=== PATIENT | female | born 1950 | race Caucasian/White ===

== ENCOUNTER 2016-12-30 07:36 | Observation (INO) | payer MEDICARE, OTHER ==
[~2016-12-30] VITALS: Ht 165.1 cm; Wt 62.1 kg
[~2016-12-30 07:36] MED LIST: ALPR0.25; ALPR0.25 PO; AMIT100T PO; AMIT50TA; AMIT50TA PO; ASPI-496 PO; ASPI-614; ATOR-2 PO; BACITRACIN 50,000 UNIT ONE; BUPIVACAINE/PF 0.5% ONE; CELE200C; CELE200C PO; CHLO1CAP PO; CHLO4TAB22; CHLO4TAB22 PO; CITRACAL PLUS PO; DOCU240C53 PO; EPINEPHRINE 1 MG/ML, 1ML ONE; ESCI20TA10 PO; ESOM40CA; ESOM40SU PO; ESTR0.3T; ESTR0.3T PO; FURO20TA3 PO; GABA300C10 PO; HYDR-3240 PO; IBAN150T; IBAN150T PO; KRIL1CAP9 PO; LEVO100T PO; LEVO125T; LEVO125T PO; MAGN400T26; MAGN400T26 PO; METF10002 PO; METF500T27 PO; METF500T9; MINO100C; MULT-717; MULT-717 PO; OMEP20TA62 PO; OXYC1TAB7 PO; POLY17PO5; PROP80CA12; PROP80CA12 PO; ROSU40TA; ROSU40TA PO; THROMBIN 5,000 UNIT VIAL TP ONE; TRAM1TAB56; TRAM1TAB56 PO; potassium gluconate PO
[2016-12-30] MEDS ORDERED: LACTATED RINGERS 1,000 ML IV SCH (08:17)
[2016-12-30 08:56] VITALS: BP 119/74
[2016-12-30] MEDS ORDERED: OXYcodone 5 MG/5 ML ORAL.SOL UDC PO PRN (11:30)
[2016-12-30] MEDS ORDERED: LABETALOL 5MG/ML, 20ML IV PRN (11:30)
[2016-12-30] MEDS ORDERED: PROMETHAZINE 25 MG/ML, 1ML IV PRN (11:30)
[2016-12-30] MEDS ORDERED: HYDROcodone/APAP 7.5-325MG/15ML UDC PO PRN (11:30)
[2016-12-30] MEDS ORDERED: hydrALAzine 20 MG/ML, 1ML IV PRN (11:30)
[2016-12-30] MEDS ORDERED: ACETAMINOPHEN 325 MG TABLET PO PRN (11:30)
[2016-12-30] MEDS ORDERED: ONDANSETRON 2MG/ML, 2ML IVPush PRN ×2 (11:30→13:30)
[2016-12-30] MEDS ORDERED: EPHEDRINE 50 MG/ML, 1ML IVPush PRN (11:30)
[2016-12-30] MEDS ORDERED: FENTANYL PF 100 MCG/2ML IV PRN (11:30)
[2016-12-30] MEDS ORDERED: MEPERIDINE/PF 25MG/0.5ML IVPush PRN (11:30)
[2016-12-30] MEDS ORDERED: HYDROmorphone 1 MG/ML, 1ML IV PRN (11:30)
[2016-12-30] MEDS ORDERED: MIDAZOLAM 1 MG/ML, 2ML IV PRN (11:30)
[2016-12-30] MEDS ORDERED: FENTANYL PF 100 MCG/2ML ONE ×3 (11:33→13:45)
[2016-12-30] MEDS ORDERED: MIDAZOLAM 1 MG/ML, 2ML ONE (11:33)
[2016-12-30] MEDS ORDERED: ONDANSETRON 2MG/ML, 2ML ONE (12:32)
[2016-12-30] MEDS ORDERED: PROPOFOL 10 MG/ML, 20ML ONE (12:32)
[2016-12-30] MEDS ORDERED: CEFAZOLIN 1,000 MG ONE (12:32)
[2016-12-30] MEDS ORDERED: DIPHENHYDRAMINE 50 MG/ML, 1ML IVPush PRN (13:30)
[2016-12-30] MEDS ORDERED: NS + 20MEQ KCL 1,000 ML IV SCH (13:30)
[2016-12-30] MEDS ORDERED: PHARMACY MAY ADJ FOR RENAL FX MC PRN (13:30)
[2016-12-30] MEDS ORDERED: OXYcodone/APAP 5/325MG TABLET PO PRN ×2 (13:30)
[2016-12-30] MEDS ORDERED: CEFAZOLIN PMX 1GM/50ML 50 ML IVPB SCH (13:30)
[2016-12-30] MEDS ORDERED: PROMETHAZINE 25 MG/ML, 1ML IM PRN (13:30)
[2016-12-30] MEDS ORDERED: ACETAMINOPHEN 650 MG/20.3 ML UDC ONE (13:45)
[2016-12-30] MEDS ORDERED: ACETAMINOPHEN 325 MG TABLET ONE (13:45)
[2016-12-30] MEDS ORDERED: OXYcodone 5 MG/5 ML ORAL.SOL UDC ONE (13:46)
[2016-12-30] MEDS ORDERED: GABAPENTIN 300 MG CAPSULE PO SCH (16:00)
[2016-12-30] MEDS ORDERED: CHLORDIAZEPOXIDE PO SCH (21:00)
[2016-12-30] MEDS ORDERED: PROPRANOLOl 80 MG CAP.SA.24H PO SCH (21:00)
[2016-12-30] MEDS ORDERED: CHLORPHENIRAMINE MALEATE 4 MG PO SCH (21:00)
[2016-12-30] MEDS ORDERED: TEMPLATE NON-FORMULARY MED. (Metformin HCl 1,000 MG) PO SCH (21:00)
[2016-12-30] MEDS ORDERED: [UNRECOGNIZED DRUG - OTHER] PO SCH (21:00)
[2016-12-30] MEDS ORDERED: OMEPRAZOLE MAGNESIUM 40 MG PO SCH (21:00)
[2016-12-30] MEDS ORDERED: AMITRIPTYLINE 100 MG TABLET PO SCH (21:00)
[2016-12-30] MEDS ORDERED: ATORVASTATIN 80 MG TABLET PO SCH (21:00)
[2016-12-30] MEDS ORDERED: SODIUM CHLORIDE FLUSH 10ML SYR IVF SCH (21:00)
[2016-12-31] MEDS ORDERED: LEVOTHYROXINE 100 MCG TABLET PO SCH (06:00)
[2016-12-31] MEDS ORDERED: CITRACAL PLUS PO SCH (09:00)
[2016-12-31] MEDS ORDERED: DOCUSATE CALCIUM 240 MG CAPSULE PO SCH (09:00)
[2016-12-31] MEDS ORDERED: MAGNESIUM OXIDE 400 MG TABLET PO SCH (09:00)
[2016-12-31] MEDS ORDERED: ESTROGEN CONJUGATED 0.3 MG TABLET PO SCH (09:00)
[2016-12-31] MEDS ORDERED: TEMPLATE NON-FORMULARY MED. (Escitalopram Oxalate** (Lexapro**) 20 MG) PO SCH (09:00)
[2016-12-31] MEDS ORDERED: POTASSIUM GLUCONATE 99 MG PO SCH (09:00)
[2017-01-01] MEDS ORDERED: FUROSEMIDE 20 MG TABLET PO SCH (09:00)
[2017-01-02] MEDS ORDERED: DIPHENHYDRAMINE 50 MG/ML, 1ML IVPush PRN (14:30)
[2017-01-02] MEDS ORDERED: ONDANSETRON 2MG/ML, 2ML IVPush PRN ×2 (14:30)
[2017-01-02] MEDS ORDERED: PROMETHAZINE 25 MG/ML, 1ML IM PRN (14:30)
[2017-01-02] MEDS ORDERED: hydrALAzine 20 MG/ML, 1ML IV PRN (14:30)
[2017-01-02] MEDS ORDERED: LACTATED RINGERS 1,000 ML IV SCH (14:30)
[2017-01-02] MEDS ORDERED: LABETALOL 5MG/ML, 20ML IV PRN (14:30)
[2017-01-02] MEDS ORDERED: PROMETHAZINE 25 MG/ML, 1ML IV PRN (14:30)
[2017-01-02] MEDS ORDERED: ACETAMINOPHEN 325 MG TABLET PO PRN (14:30)
== END 2016-12-30 15:45 | disposition home or self-care (01) ==
LOC: OUT 07:36 → ORIP 13:29
PROVIDERS: ADMIT Neurological Surgery; ATTEND Neurological Surgery
DX: Z45.49 Encounter for adjustment and management of other implanted nervous system device (principal); G89.4 Chronic pain syndrome; E11.9 Type 2 diabetes mellitus without complications; I10 Essential (primary) hypertension; F41.9 Anxiety disorder, unspecified; K21.9 Gastro-esophageal reflux disease without esophagitis; F32.9 Major depressive disorder, single episode, unspecified; M54.81 Occipital neuralgia; G43.909 Migraine, unspecified, not intractable, without status migrainosus
CPT/HCPCS: 63685; 82962; C1767; C1787; C1883; G0378; J0171; J0690; J2250; J2405; J2704; J3010; J3490; J7120

== ENCOUNTER 2018-08-30 09:01 | Day surgery (SDC) | payer MEDICARE, OTHER ==
[~2018-08-30] VITALS: Ht 165.1 cm; Wt 75.0 kg
[~2018-08-30 09:01] MED LIST changes: +BUPIVACAINE/EPI 0.5% 1:200K ONE; -BUPIVACAINE/PF 0.5% ONE; -EPINEPHRINE 1 MG/ML, 1ML ONE; -IBAN150T; -IBAN150T PO; +IBAN150T15; +IBAN150T15 PO; -METF10002 PO; +METF10007 PO; +MICROFIBRILLAR COLLAGEN 70X35X1 DRESSING ONE; +VANCOMYCIN 1,000 MG ONE
[2018-08-30] MEDS ORDERED: ACETAMINOPHEN 500 MG TABLET PO ONE (09:32)
[2018-08-30] MEDS ORDERED: DIAZEPAM 5 MG TABLET PO ONE (09:32)
[2018-08-30] MEDS ORDERED: GABAPENTIN 300 MG CAPSULE PO ONE (09:32)
[2018-08-30] MEDS ORDERED: LACTATED RINGERS 1,000 ML IV SCH (09:33)
[2018-08-30 09:41] VITALS: BP 147/82
[2018-08-30] MEDS ORDERED: [UNRECOGNIZED DRUG - CODE] PO (09:52)
[2018-08-30] MEDS ORDERED: HYOS0.1268 PO (09:52)
[2018-08-30] MEDS ORDERED: SIME125T50 PO (09:52)
[2018-08-30] MEDS ORDERED: DOCU100C33 PO (09:52)
[2018-08-30] MEDS ORDERED: AMIT50TA PO (09:52)
[2018-08-30] MEDS ORDERED: CALC-123 PO (09:52)
[2018-08-30] MEDS ORDERED: LIDOCAINE-MPF 1%, 2ML INFIL ONE (10:00)
[2018-08-30] MEDS ORDERED: FENTANYL PF 250 MCG/5ML ONE (10:18)
[2018-08-30] MEDS ORDERED: MIDAZOLAM 1 MG/ML, 2ML ONE (10:18)
[2018-08-30 10:21] LABS: MEAN CORPUSCULAR HEMOGLOBIN 23.9 pg (27.0-34.8); MEAN CORPUSCULAR HGB CONC 31.4 g/dL (32.4-35.8); MEAN PLATELET VOLUME 6.8 fL (7.4-10.4); PLATELET COUNT 476 x10^3/uL (130-400); RED BLOOD COUNT 4.69 x10^6/uL (3.82-5.3); RED CELL DISTRIBUTION WIDTH 24.2 % (9.6-15.2)
[2018-08-30 10:35] LABS: BASOPHILS # (AUTO) 0.07 x10^3/uL (0-0.1); BASOPHILS % (AUTO) 1 % (0-1); EOSINOPHILS # (AUTO) 0.37 x10^3/uL (0-0.4); EOSINOPHILS % (AUTO) 6 % (1-7); LYMPHOCYTES # (AUTO) 2.24 x10^3/uL (1-3.4); LYMPHOCYTES % (AUTO) 36 % (22-44); MD MORPH REVIEW ONLY; MONOCYTES % (AUTO) 11 % (2-9); NEUTROPHILS # (AUTO) 2.94 x10^3/uL (1.8-6.8); NEUTROPHILS % (AUTO) 47 % (42-75)
[2018-08-30 10:38] LABS: ACANTHOCYTES 1+; ANISOCYTOSIS 2+; HYPOCHROMIA 1+; MICROCYTOSIS 1+
[2018-08-30 10:40] LABS: <PLATELET ESTIMATE> INCREASED; OVALOCYTES 1+
[2018-08-30 10:41] LABS: POLYCHROMASIA 1+; SMALL PLATELETS 1+
[2018-08-30] MEDS ORDERED: ROCURONIUM 10 MG/ML,10ML ONE (10:48)
[2018-08-30] MEDS ORDERED: SUCCINYLCHOLINE 20 MG/ML, 10ML ONE (10:48)
[2018-08-30] MEDS ORDERED: CEFAZOLIN 1,000 MG ONE (11:12)
[2018-08-30] MEDS ORDERED: PROPOFOL 10 MG/ML, 20ML ONE (11:12)
[2018-08-30] MEDS ORDERED: DEXAMETHASONE 4 MG/ML, 1ML ONE (11:12)
[2018-08-30] MEDS ORDERED: ONDANSETRON 2MG/ML, 2ML ONE (11:12)
[2018-08-30] MEDS ORDERED: OXYcodone 5 MG/5 ML ORAL.SOL UDC PO PRN (11:30)
[2018-08-30] MEDS ORDERED: FENTANYL PF 100 MCG/2ML IV PRN (11:30)
[2018-08-30] MEDS ORDERED: ALBUTEROL/IPRATROPIUM 2.5MG/0.5MG, 3 ML NPPB PRN (11:30)
[2018-08-30] MEDS ORDERED: MEPERIDINE/PF 25MG/0.5ML IVPush PRN (11:30)
[2018-08-30] MEDS ORDERED: METOPROLOL 1 MG/ML, 5ML IV PRN (11:30)
[2018-08-30] MEDS ORDERED: ONDANSETRON 2MG/ML, 2ML IV PRN (11:30)
[2018-08-30] MEDS ORDERED: OXYcodone 5 MG/5 ML ORAL.SOL UDC ONE (12:04)
== END 2018-08-30 14:10 | disposition home or self-care (01) ==
LOC: OUT 09:01
PROVIDERS: ATTEND Neurological Surgery
DX: T85.192A Other mechanical complication of implanted electronic neurostimulator of spinal cord electrode (lead), initial encounter (principal); I10 Essential (primary) hypertension; K21.9 Gastro-esophageal reflux disease without esophagitis; E11.9 Type 2 diabetes mellitus without complications; G43.909 Migraine, unspecified, not intractable, without status migrainosus; F32.9 Major depressive disorder, single episode, unspecified; Z79.84 Long term (current) use of oral hypoglycemic drugs; Z87.891 Personal history of nicotine dependence; F41.9 Anxiety disorder, unspecified; Z88.6 Allergy status to analgesic agent; Z88.1 Allergy status to other antibiotic agents; Z88.8 Allergy status to other drugs, medicaments and biological substances; Y83.8 Other surgical procedures as the cause of abnormal reaction of the patient, or of later complication, without mention of misadventure at the time of the procedure; Y92.89 Other specified places as the place of occurrence of the external cause
CPT/HCPCS: 36415; 64585; 82962; 85025; J0330; J0690; J1100; J2250; J2405; J2704; J3010; J3370; J7120

== ENCOUNTER → 2020-03-26 | Outpatient (CLI) | payer MEDICARE, OTHER ==
[~2020-03-26] MED LIST changes: -BACITRACIN 50,000 UNIT ONE; -BUPIVACAINE/EPI 0.5% 1:200K ONE; +CALC-123 PO; +DOCU100C33 PO; +HYOS0.1268 PO; +METF-754; -METF500T9; -MICROFIBRILLAR COLLAGEN 70X35X1 DRESSING ONE; -MINO100C; +MINO100C61; -PROP80CA12; -PROP80CA12 PO; +PROP80CA47; +PROP80CA47 PO; +SIME125T50 PO; -THROMBIN 5,000 UNIT VIAL TP ONE; -VANCOMYCIN 1,000 MG ONE; +[UNRECOGNIZED DRUG - CODE] PO
== END | disposition home or self-care (01) ==
LOC: STAR 12:05
PROVIDERS: ATTEND Anesthesiology
DX: Z20.828 Contact with and (suspected) exposure to other viral communicable diseases (principal)
CPT/HCPCS: 87635